=== PATIENT | female | born 1980 | race Caucasian/White ===

== ENCOUNTER 2024-05-28 06:43 | Emergency (ER) | payer OTHER, SELFPAY ==
--- NOTE | ~2024-05-28 | XR_ITS ---
EXAMINATION: XR SHOULDER, RIGHT CLINICAL INFORMATION: Pain with movement COMPARISON: None available. TECHNIQUE: AP external rotation, and scapular Yviews of the right shoulder. FINDINGS: No acute cortical disruption or malalignment. No lytic or blastic lesions. XR/XR shoulder RT min 2V IMPRESSION: No acute fracture or dislocation. Electronically signed by: Karsten Salinas MD 05/28/2024 07:30 AM TASHI
[2024-05-28 06:46] VITALS: BP 112/78; PULSE 68; RESP 16; TEMP 36.6; O2SAT 99; BMI 26.6
--- NOTE | 2024-05-28 07:53 | ED.EXTPRO ---
HPI - Extremity Problem General Chief complaint: Extremity Injury, Upper Stated complaint: Right arm pain ? carpal tunnel Time Seen by Provider: 05/28/24 07:39 Source: patient Mode of arrival: ambulatory History of Present Illness ED Provider: Emily [facility] Narrative: 43-year-old female, no significant past medical history, denies any smoking or drinking of alcohol and is recently entered this country 1 month ago from [place] and states she has had acute worsening of chronic right shoulder discomfort and arm discomfort that is not associated with any fever, chills, abdominal pain, new cough and she states that she is up-to-date on all vaccines to include BCG vaccine for TB in her home country. Related Data Previous Rx's ?Medication ?Instructions ?Recorded cyclobenzaprine 10 mg tablet 10 mg PO BEDTIME PRN muscle spasm 05/28/24 #7 tabs ketorolac 10 mg tablet 10 mg PO Q6H PRN pain #20 tabs 05/28/24 Allergies Allergy/AdvReac Type Severity Reaction Status Date / Time No Known Allergies Allergy Verified 05/28/24 06:54 Review of Systems Review of Systems: Pertinent positives and negatives as stated in HPI Physical Exam Vital Signs: Vital Signs: Last Vital Signs Temp 97.8 F 05/28/24 06:46 Pulse 68 05/28/24 06:46 Resp 16 05/28/24 06:46 BP 112/78 05/28/24 06:46 Pulse Ox 99 05/28/24 06:46 O2 Del Method Room Air 05/28/24 06:46 BMI result Body Mass Index 26.6 VITAL SIGNS: Reviewed. GENERAL: Well developed, well nourished, in no acute distress. HEAD: Normocephalic/atraumatic EYES: PERRLA, EOMI LUNGS: Normal breath sounds. No adventitious sounds or accessory muscle use. SpO2<99> CARDIOVASCULAR: Regular rate and rhythm without noted murmurs ABDOMEN: Soft, non-tender, non-distended with bowel sounds. MUSCULOSKELETAL: No tenderness, deformities, or effusions noted on gross inspection. EXTREMITIES: No cyanosis, clubbing or edema. RUE: No deformity, sensation intact and palpable ulnar/radial pulse SKIN: Inspection of the skin reveals no rashes NEUROLOGIC: Alert and oriented x 4. Strength and sensation to light touch were grossly intact x 4. Medical Decision Making Medical Decision Making MDM Narrative: 43-year-old female with history and clinical presentation chronic right upper extremity pain that originates at the right paraspinal, suspect cervical radiculopathy, history is atraumatic in nature and is not associated with infectious symptoms. Patient does have insurance and is attempting to establish care with a primary provider. She will be given combination analgesics and then discharged with a prescription for additional medications. Differential Diagnosis Differential Diagnoses: The differential diagnosis associated with the presentation includes See above Admission/Observation Patient does not meet inpatient level of care Independent Interpretation I performed an independent interpretation of an: Plain X-Ray Interpretation: On my interpretation there is no evidence of acute fracture or dislocation, and otherwise my interpretation is in agreement with radiology's impression. Radiology Impression Discussion of test interpretation with radiology: I discussed test interpretation with the radiologist Radiologist Impression: Please see above Prescription Management I considered prescription management with: Pain Medication Tylenol, ibuprofen, cyclobenzaprine Discharge Plan Discharge Clinical Impression: Chronic pain of right upper extremity, Cervical radiculopathy Patient Disposition: Home, Self-Care Instructions: Cervical Radiculopathy (ED), Arm Pain (ED) Additional Instructions: Tylenol 1000 mg, orally, every 6 hours as needed for pain control. Do not exceed 4000 mg within 24 hours. Continue with lidocaine patch apply to area of maximal pain. Recommend [id number]-[id number] diclofenac cream, apply to the right side of the neck as directed on the outside packaging. You have been provided with a list of possible primary care providers in the area. Do not hesitate to return to the emergency room should you develop any symptoms such as fever, chills, new cough. Prescriptions: New cyclobenzaprine 10 mg tablet 10 mg PO BEDTIME PRN (Reason: muscle spasm) Qty: 7 0RF ketorolac 10 mg tablet 10 mg PO Q6H PRN (Reason: pain) Qty: 20 0RF Rx Instructions: maximum total duration of 5 days from all oral, intranasal, or parenteral formulations Print Language: Amharic
[2024-05-28] MEDS: Cyclobenzaprine HCl 10 MG TABLET PO (08:11)
[2024-05-28] MEDS: Acetaminophen 325 MG TABLET 975 MG PO (08:12)
[2024-05-28] MEDS: Ketorolac Tromethamine 15 MG/ML VIAL IM (08:12)
[2024-05-28 08:45] VITALS: BP 112/78; PULSE 68; RESP 16; TEMP 36.6; O2SAT 99
== END 2024-05-28 08:45 | disposition home or self-care (01) ==
PROVIDERS: Emergency Provider Student in an Organized Health Care Education/Training Program
DX: M79.601 Pain in right arm (principal); M54.12 Radiculopathy, cervical region; R05.9 Cough, unspecified
CPT/HCPCS: 73030; 96372; 99283; 99284; J1885

== ENCOUNTER → 2024-05-28 07:15 | Outpatient (BNV) | payer OTHER, SELFPAY | PROVIDERS: Emergency Provider Student in an Organized Health Care Education/Training Program; Visit Provider Radiology Diagnostic Radiology | DX: M25.511 Pain in right shoulder (principal) | CPT/HCPCS: 73030 ==

== ENCOUNTER 2025-03-12 13:10 | Outpatient (REF) | payer OTHER, SELFPAY | END 2025-03-12 13:11 | disposition home or self-care (01) | LOC: HO.LNP 13:10 | DX: Z13.89 Encounter for screening for other disorder (principal); R31.9 Hematuria, unspecified; J30.2 Other seasonal allergic rhinitis; Z91.018 Allergy to other foods; R51.9 Headache, unspecified; M25.50 Pain in unspecified joint; N75.0 Cyst of Bartholin's gland; R20.0 Anesthesia of skin; R20.2 Paresthesia of skin; F41.9 Anxiety disorder, unspecified; M25.511 Pain in right shoulder | CPT/HCPCS: 81002; 88112; 96127; 99202 ==

== ENCOUNTER 2025-03-12 13:10 | Outpatient (AMB) | payer OTHER, SELFPAY ==
--- NOTE | 2025-03-12 13:11 | MHC.PC.OV ---
Vital Signs 03/12/25 13:12 Height 4 ft 11.84 in Weight 151 lb BMI 29.6 BP 104/66 Blood Pressure Location Lt brachial Position Sitting Pulse 78 Pulse Oximetry (%) 98 Intake Visit Reasons: establish care Hatchery Manager Required: Yes Hatchery Manager Language: Croatian Accompanied by: Self / Same As Patient Allergies No Known Allergies Allergy (Verified 03/12/25 13:38) Medication List - Last Reconciled 03/12/25 by Becca Lema PA-C No Known Home Meds Tobacco use date assessed: 03/12/25 Dental Screening Dental Screen Date: 03/12/25 Did you have a dental visit in the last 12 months?: No Did you have a dental problem in the last 6 months where you did not have access to dental care?: No Was dental information given to patient?: Yes HPI establish care HPI Details 44 year old female coming to the office for the first time. science interpreter Ignacio [id number] used for the duration of this visit. Presenting with multiple symptoms including seasonal allergies, cervical radiculopathy, carpal tunnel syndrome, anxiety, urinary incontinence, headaches, and parotid gland inflammation. Reports hives and shortness of breath with allergen exposure, occurring three to four times weekly. Loratadine provides some relief. Describes neck pain radiating to arms and fingers, with numbness and tingling, particularly in the mornings. Symptoms began in April-May, leading to an ER visit and diagnosis of cervical physiopathology. Experiences numbness and tingling in the first three digits, worsening during work activities. Present for several months. Acknowledges positive anxiety screening and interest in medication management. History of anti-anxiety medication use in [facility]. Reports new onset of urinary leakage when laughing or coughing, over the past three months. [facility] Surgical History H/O abdominoplasty Hx of appendectomy H/O section Family History Father Diabetes 1.5, managed as type 1 Maternal Grandfather Prostate cancer Paternal Grandfather Prostate cancer Social History Household Members: Spouse and Children Both parents involved: Yes Housing: Apartment Are you a primary early breastfeeding care specialist to a significant other at home: No Do you presently have visiting nurse or other home services: No Alcohol intake: never Patient Tobacco Use Status: Never used Tobacco service: No Current occupational status: employed Cognitive needs: No Hearing needs: No Vision needs: Yes Female Reproductive History Menstrual Total pregnancies: 3 Questionnaire PHQ-9 Over the last 2 weeks, how often have you been bothered by any of the following problems? 1. Little interest or pleasure in doing things: not at all 2. Feeling down, depressed, or hopeless: not at all 3. Trouble falling or staying asleep, or sleeping too much: several days 4. Feeling tired or having little energy: not at all 5. Poor appetite or overeating: not at all 6. Feeling bad about yourself - or that you are a failure or have let yourself or your family down: several days 7. Trouble concentrating on things, such as reading the newspaper or watching television: not at all 8. Moving or speaking so slowly that other people could have noticed. Or the opposite - being so fidgety or restless that you have been moving around a lot more than usual: not at all 9. Thoughts that you would be better off or of hurting yourself in some way: not at all Total score: 2 Depression Screening Interpretation: Negative Depression Screening Done: Yes [id number] - PHQ-9 Billing: Yes Source: Developed by Drs. Isaias Mar, Demetra Lino, Anthony Evangelista and colleagues, with an educational lux from [employer]. Thrive Questionnaire I am a: Patient What is your living situation today?: I have a steady place to live Within the past 12 months, did the food you bought not last and you didn't have the money to get more?: Never true Within the past 12 months, did you worry whether your food would run out before you got money to buy more?: Never true Do you have trouble paying for medicines?: No Do you have trouble getting transportation to medical appointments?: No Do you have trouble paying your heating and electricity bill?: No Do you have trouble taking care of your child, family member or friend?: No Do you have trouble with day-to-day activities such as bathing, preparing meals, shopping, managing finances, etc.?: No Are you currently unemployed and looking for a job?: No Are you interested in more education?: No Please select the resources that you would like help with: None THRIVE Score: 0 AUDIT C Alcohol Use Questionnaire (AUDIT-C) 1. How often do you have a drink containing alcohol?: Never 3. How often do you have six or more drinks on one occasion?: Never Total Score: 0 Score Reviewed/Action Taken: Yes JEN-7 AMB Questionnaire JEN-7 Feeling nervous, anxious, or on edge: 0 = Not at all Not being able to stop or control worryin = More than half the days Worrying too much about different things: 2 = More than half the days Trouble relaxin = More than half the days Being so restless that it is hard to sit still: 1 = Several days Becoming easily annoyed or irritable: 2 = More than half the days Feeling afraid as if something awful might happen: 2 = More than half the days Total JEN-7 score (0-4 normal; 5-9 mild; 10-14 moderate; 15-21 severe): 11 Source: Developed by Drs. Isaias Mar, Demetra Lino, Anthony Evangelista and colleagues, with an educational lux from [employer]. JEN-7 Assessment Billing JEN-7 Assessment Tool: JEN-7 Assessment 52743 Review of Systems Const Denies body aches, Denies fatigue, Denies fever(s), Denies frequent falls, Reports headache(s) and Denies weakness Eyes Reports no additional complaints and Denies change in vision ENT Denies dizziness, Denies facial pain, Reports headache(s) and Denies nasal congestion Card Denies chest pain, Denies syncope, Denies leg edema, Denies lightheadedness and Denies dyspnea Resp Denies dyspnea GI Denies abdominal pain, Denies dyspepsia, Denies nausea and Denies vomiting Reports as per HPI, Denies urinary hesitancy and Denies urinary urgency Musc Reports as per HPI, Denies back pain and Denies myalgias Skin/Breast Reports system reviewed and no additional complaints, except as documented Neuro Denies dizziness, Denies syncope, Denies frequent falls, Reports headache(s) and Denies weakness Psych Reports no additional complaints Endo Denies fatigue Physical exam (Primary Care) Vital Signs: Last Vital Signs Pulse 78 03/12/25 13:12 BP 104/66 03/12/25 13:12 Pulse Ox 98 03/12/25 13:12 BMI result Body Mass Index 29.6 Tobacco/Smoking Status: Tobacco use Status Tobacco use date assessed 03/12/25 03/12/25 13:17 Patient Tobacco Use Status Never used Tobacco 03/12/25 13:19 PHQ-9: PHQ-9 Score PHQ-9: Total score 2 03/13/25 13:13 Depression Screening Interpretation: Negative Const General: cooperative, healthy appearing, comfortable and no acute distress Orientation/consciousness: patient oriented x3 HENMT Head: Yes normocephalic Ears: hearing grossly normal bilaterally, external ears normal, TM's normal bilaterally and EAC's normal General nose exam: Normal external nose present Face and sinus: Yes normal facial exam and Yes sinuses nontender Mouth: Normal oral and palatal mucosa present and tongue normal Throat: Yes posterior oropharynx normal Eyes General: appearance normal, both eyes and all related structures Conjunctivae: conjunctivae normal Pupils: Equal, round and reactive pupils present EOM: EOMs intact bilaterally and No Nystagmus present Neck Neck: Yes normal visual inspection, Yes full ROM and Yes no lymphadenopathy Chest Chest palpation & inspection: normal inspection of the chest Resp Effort & Inspection: normal respiratory effort Auscultation: clear to auscultation bilaterally, no crackles, no rales, no rhonchi, no wheezes and breath sounds present Cardio Rate: regular rate Rhythm: regular rhythm Peripheral pulses: radial pulses present and dorsalis pedis present GI Inspection: Yes normal to inspection and No Abdominal wall edema Palpation (GI): Soft to palpation, not firm and nontender Auscultation: normal bowel sounds Rectal Exam - Female: deferred General: Yes no CVA tenderness Back/Spine/Pelvis Back: no CVA tenderness Skin General skin exam: no rashes or lesions noted Neuro General: patient oriented x3 Cranial nerves: Yes Equal, round and reactive pupils present, Yes Midline tongue present, Yes Ability to bilaterally elevate shoulders present and No Nystagmus present Gait exam (Neuro): Normal gait present Extrem Other: Tenderness to palpation over right shoulder and cervical paraspinal muscles with intact strength, sensation and pulses in bilateral upper extremities General: Yes normal to inspection, Yes full ROM, No no pedal edema and No edema Psych Speech and movement: Normal speech and movement present Affect: normal affect Insight: Good insight present (Psych) Judgement: Good judgement present (Psych) Results AMB Urinalysis Dipstick UR Leukocytes Negative Last Edit by Chance Trivedi MA on 03/12/25 14:38 UR Nitrite Negative Last Edit by Chance Trivedi MA on 03/12/25 14:38 UR Urobilinogen 2 Last Edit by Chance Trivedi MA on 03/12/25 14:38 UR Protein Negative Last Edit by Chance Trivedi MA on 03/12/25 14:38 UR Ph 6.0 Last Edit by Chance Trivedi MA on 03/12/25 14:38 UR Blood Trace Last Edit by Chance Trivedi MA on 03/12/25 14:38 UR Specific Bannister 1.015 Last Edit by Chance Trivedi MA on 03/12/25 14:38 UR Ketone Negative Last Edit by Chance Trivedi MA on 03/12/25 14:38 UR Bilirubin Negative Last Edit by Chance Trivedi MA on 03/12/25 14:38 UR Glucose Negative Last Edit by Chance Trivedi MA on 03/12/25 14:38 Results Reviewed Results Reviewed: Laboratory Last Values Urine pH (Clinic) 6.0 03/12/25 14:36 Specific Bannister (Clinic) 1.015 03/12/25 14:36 Ur Protein (Clinic) Negative 03/12/25 14:36 Ur Ketones (Clinic) Negative 03/12/25 14:36 Urine Blood (Clinic) Trace 03/12/25 14:36 Urine Nitrite Negative 03/12/25 14:36 Urine Bilirubin (Clinic) Negative 03/12/25 14:36 Urobilinogen (Clinic) 2 03/12/25 14:36 Leukocyte Esterase (Clinic) Negative 03/12/25 14:36 Urine Glucose (Clinic) Negative 03/12/25 14:36 Coding Level of Care Code New Pt Level 4 (94715) Diagnoses Seasonal allergies J30.2 Multiple food allergies Z91.018 Frequent headaches R51.9 Joint pain M25.50 Bartholin gland cyst N75.0 Numbness and tingling in both hands R20.0; R20.2 Hematuria R31.9 Anxiety F41.9 Right shoulder pain M25.511 Additional Codes JEN-7 Assessment Billing - JEN-7 Assessment Tool: JEN-7 Assessment 08122 ([id number]) PHQ-9 - 25764 - PHQ-9 Billing: Yes ([id number]) Assessment & Plan Assessment & Plan (1) Seasonal allergies: Code(s): J30.2 - Other seasonal allergic rhinitis Category: Medical Plan: For seasonal allergies recommend continuation of loratadine at this time and may add Flonase if needed (2) Multiple food allergies: Code(s): Z91.018 - Allergy to other foods Category: Medical Plan: For multiple food and possibly environmental allergies referral was placed to allergy and immunology today. (3) Frequent headaches: Code(s): R51.9 - Headache, unspecified Category: Medical Plan: For frequent headaches I do believe it may be related to bruxism given the distribution of the headaches and TMJ pain. Recommend rock crusher operator and keeping a headache diary. (4) Joint pain: Code(s): M25.50 - Pain in unspecified joint Category: Medical Plan: For generalized joint pains in the hands and feet with morning stiffness concern for possible rheumatoid arthritis and blood work was ordered. (5) Bartholin gland cyst: Code(s): N75.0 - Cyst of Bartholin's gland Category: Medical Plan: Referral was placed to gynecology today. (6) Numbness and tingling in both hands: Code(s): R20.0 - Anesthesia of skin; R20.2 - Paresthesia of skin Category: Medical Plan: For numbness and tingling in both hands plan to obtain upper extremity EMG for further evaluation of carpal tunnel. Discussed the use of nighttime splints. (7) Hematuria: Code(s): R31.9 - Hematuria, unspecified Category: Medical Plan: Patient having incidental finding of hematuria plan for urine cytology and consider imaging if persistent. (8) Anxiety: Code(s): F41.9 - Anxiety disorder, unspecified Category: Medical Plan: Plan to start on citalopram daily and referral was placed to counseling today. (9) Right shoulder pain: Code(s): M25.511 - Pain in right shoulder Category: Medical Plan: For right shoulder pain plan for physical therapy for further evaluation and treatment. Patient may use Tylenol, ibuprofen and heating pads as needed Plan During the visit, I discussed with the patient the management of her seasonal allergies, including the continuation of Loratadine and referral to an splash line operator. We also talked about the potential need for physical therapy for her cervical radiculopathy and the possibility of surgical intervention for carpal tunnel syndrome if symptoms persist. I explained the use of citalopram for anxiety management and the importance of counseling. We addressed her urinary incontinence with a urine sample to rule out infections. For her headaches, I recommended maintaining regular sleep patterns and considering vision correction. Lastly, I referred her to a direct care staffer for further evaluation of her parotid gland inflammation. This note was constructed using voice recognition software. While every effort has been made to ensure accuracy and inspector clip on sunglasses, still areas may have been included sometimes these areas may affect the content or meeting of the given symptoms. Total time spent caring for the patient today was 30 minutes. This includes time spent before the visit reviewing the chart, time spent during the visit, and time spent after the visit and documentation. Patient was informed and verbally consented to the use of an ambient scribe for clinic note documentation during this visit. Orders: Orders Rheumatoid Factor 03/12/25 M25.50 - Pain in unspecified joint C Reactive Protein 03/12/25 M25.50 - Pain in unspecified joint CAIT Reflex Titer and Pattern 03/12/25 M25.50 - Pain in unspecified joint Vitamin B12 and Folate 03/12/25 M25.50 - Pain in unspecified joint, Z13.21 - Encounter for screening for nutritional disorder Hemoglobin A1c 03/12/25 R35.0 - Frequency of micturition, Z13.1 - Encounter for screening for diabetes mellitus NE electromyogram (EMG) 03/12/25 R20.0 - Anesthesia of skin, R20.2 - Paresthesia of skin Erythrocyte Sedimentation Rate 03/12/25 M25.50 - Pain in unspecified joint Complete Blood Count Auto Diff 03/12/25 M25.50 - Pain in unspecified joint, Z00.00 - Encounter for general adult medical examination without abnormal findings Comprehensive Met. Panel 03/12/25 M25.50 - Pain in unspecified joint, Z00.00 - Encounter for general adult medical examination without abnormal findings Vitamin D 25-OH Total 03/12/25 M25.50 - Pain in unspecified joint, Z13.21 - Encounter for screening for nutritional disorder TSH reflex Free T4 03/12/25 M25.50 - Pain in unspecified joint, Z13.29 - Encounter for screening for other suspected endocrine disorder Free T4 (Free Thyroxine) 03/12/25 R51.9 - Headache, unspecified, Z00.00 - Encounter for general adult medical examination without abnormal findings Lipid Panel 03/12/25 Z13.220 - Encounter for screening for lipoid disorders AMB Urinalysis Dipstick 03/12/25 Z13.9 - Encounter for screening, unspecified NE nerve conduction velocity 03/12/25 R20.0 - Anesthesia of skin, R20.2 - Paresthesia of skin PT Evaluation and Treatment 03/12/25 M25.511 - Pain in right shoulder, S16.1XXA - Strain of muscle, fascia and tendon at neck level, initial encounter Urine Cytology 03/12/25 R31.9 - Hematuria, unspecified Referrals Counseling Referral F41.9 - Anxiety disorder, unspecified Allergy & Immunology Referral J30.2 - Other seasonal allergic rhinitis, Z91.018 - Allergy to other foods Optometry Referral Z00.00 - Encounter for general adult medical examination without abnormal findings WIRE ROPE SLING MAKER Referral N75.0 - Cyst of Bartholin's gland, Z12.4 - Encounter for screening for malignant neoplasm of cervix Orthopedics Referral R20.0 - Anesthesia of skin, R20.2 - Paresthesia of skin Medications: New loratadine (Allergy Relief (loratadine)) 10 mg PO DAILY 90 tabs 0RF citalopram 10 mg PO DAILY 90 tabs 0RF Discontinued ketorolac maximum total duration of 5 days from all oral, intranasal, or parenteral formulations Discontinued Reason: Patient no longer taking 10 mg PO Q6H PRN 20 tabs 0RF pain cyclobenzaprine Discontinued Reason: Patient no longer taking 10 mg PO BEDTIME PRN 7 tabs 0RF muscle spasm
[2025-03-12 13:12] VITALS: BP 104/66; PULSE 78; O2SAT 98; BMI 29.6
--- OUTSIDE RECORDS SUMMARY | 2025-03-12 13:46 | XMS_ITS | Clinical Summary ---
Author Organization [facility] Address [address] [place] [id number] Phone Care Team Providers Care Energy Professional Name Role Phone Pcp, Unknown Primary Care Provider Unavailabl e Allergies No known active allergies Medications lidocaine (LIDODERM) 5 % Place 1 patch onto the skin daily. Remove & Discard patch within 12 hours or as directed by 30 patch 05/03/2024 Active Active Problems No known active problems Social History Tobacco Use Types Packs/Day Years Used Date Smoking Tobacco: Never Smokeless Tobacco: Never Tobacco Cessation:Counseling Given: Not Answered Education Answer Date Recorded Are you interested in more education? Not on augusta e 05/03/2024 Are you concerned about learning? Not on file 05/03/2024 No 05/03/2024 No 05/03/2024 Digital Access Answer Date Recorded No 05/03/2024 No 05/03/2024 Reliable internet access at home? Not on file 05/03/2024 Device with a working camera? Not on file Comments Unknown Sex and Gender Information Value Date Recorded Sex Assigned at Not on file Legal Sex Female 11:29 AM EDT Gender Identity Not on file Sexual Orientation Not on file Last Filed Vital Signs Vital Sign Reading Time Taken Comments Blood Pressure 100/62 05/03/2024 2:29 PM EDT Pulse 65 05/03/2024 2:29 PM EDT Temperature 36.7 C (98 F) 05/03/2024 2:29 PM EDT Respiratory Rate - - Oxygen Saturation 100% 05/03/2024 2:29 PM EDT Inhaled Oxygen Concentration - - Weight 64.9 kg (143 lb) 05/03/2024 2:29 PM EDT Height 151.9 cm (4' 11.8 ) 05/03/2024 2:29 PM ED T Body Mass Index 28.11 05/03/2024 2:29 PM EDT Plan of Treatment Health Maintenance Due Date Last Done Comments Adult Td,Tdap Booster 1981 DEPRESSION SCREENING 1993 HEPATITIS C SCREENING 1999 HIV ONE-TIME SCREENING (18-6 5 YEARS) 1999 PAP SMEAR 2002 SCREENING FOR DIABETES 2016 MAMMOGRAM 2021 COVID-19 VACCINE (2023-2 5 season) 2024 SMOKING STATUS SCREENING (On ce After 26 Yrs) Completed 05/03/2024 HEPATITIS A VACCINES Aged Out No long er eligible based on patient's age to complete this topic HIB VACCINES Aged Out No longer eligi ble based on patient's age to complete this topic MENINGOCOCCAL VACCINES (ACWY) Aged Out No longer eligible based on patient's age to complete this topic MENINGOCOCCAL VACCINES (B) Aged Out N o longer eligible based on patient's age to complete this topic PNEUMOCOCCAL VACCINES (0-49 years) Aged Out No longer eligible based on patient's age to complete this topic Medical Devices Not on file Insurance HE[employer] S[employer]Y [place] [address] [place] [address] [place] [place] [address] [place] [address] PARTIAL HEALTH SAFETY NET PARTIAL [facility] SAFETY NET PARTIAL Care Teams Energy Professional Relationship Specialty Start Date End Date Pcp, Unknown PCP - General 05/03/24 Additional Source Comments The information contained in this document represents components of the legal health record. It is not the complete legal health record.[facility]
== END 2025-03-12 14:32 | disposition home or self-care (01) ==
DX: Z13.9 Encounter for screening, unspecified (principal)

== ENCOUNTER 2025-04-11 07:45 | Outpatient (REF) | payer OTHER, SELFPAY ==
--- OUTSIDE RECORDS SUMMARY | 2025-04-11 07:48 | XMS_ITS | Clinical Summary ---
Author Organization [facility] Address [address] [place] [id number] Phone Care Team Providers Care Street Sweeper Name Role Phone Pcp, Unknown Primary Care [...] 2002 SCREENING FOR DIABETES 2016 MAMMOGRAM 2021 INFLUENZA VACCINE (#1) 2025 COVID-19 VACCINE (2023-2 5 season) 2025 SMOKING STATUS SCREENING (On ce After 26 [...] topic Medical Devices Not on file Insurance SAFETY NET PARTIAL HEALTH SAFETY NET PARTIAL HEALTH SAFETY NET PARTIAL HEALTH SAFETY NET PARTIAL HEALTH SAFETY NET PARTIAL HEALTH SAFETY NET PARTIAL Care Teams Street Sweeper Relationship Specialty Start Date End Date Pcp, Unknown PCP - General 05/03/24 Additional Source Comments The information contained in this document represents components of the legal health record. It is not the complete legal health record.[facility]
[2025-04-11 08:22] LABS: MANUAL DIFF FLAG NO
[2025-04-11 08:56] LABS: Hematocrit 40.1 % (37.0-47.0); Hemoglobin 13.4 g/dl (12.0-16.0); Imm Gran Abs Auto 0.04 X10*3/uL (0.00-0.03); Imm Gran Pct Auto 0.5 % (0.0-0.4); Lymphocytes Absolute Auto 2.7 X10*3/uL (1.2-4.9); Mean Corpuscular HGB Conc 33.4 g/dl (31.0-35.0); Mean Corpuscular Hemoglobin 28.5 pg (27.0-33.0); Mean Corpuscular Volume 85.1 fL (80.0-98.0); NRBC Abs Auto 0.000 X10*3/uL (0.0-0.012); NRBC Pct Auto 0.0 /100WBC (0.0-0.2); Platelet Count 345 X10*3/uL (160-400); Red Blood Count 4.71 X10*6/uL (4.20-5.50); White Blood Count 7.9 X10*3/uL (4.8-10.8)
[2025-04-11 09:44] LABS: Alanine Aminotransferase 14 U/L (0-31); Albumin Level 4.2 g/dL (3.5-5.0); Alkaline Phosphatase 75 U/L (39-117); Anion Gap 11 (12-20); Aspartate Amino Transferase 19 U/L (5-31); Blood Urea Nitrogen 11 mg/dL (9-16); Calcium 8.7 mg/dL (8.4-10.2); Carbon Dioxide 23 mmol/L (22-29); Chloride 108 mmol/L (96-108); Cholesterol 193 mg/dL (<200); Estimated Glomerular Filt Rate > 60; HDL Cholesterol 70 mg/dL (>40); Potassium 4.1 mmol/L (3.3-5.1); Sodium 138 mmol/L (135-145); Total Protein 7.3 g/dL (6.5-8.0); Triglycerides 94 mg/dL (<150)
[2025-04-11 09:53] LABS: Folate 13.4 ng/mL (> or = 4.0); Free T4 (Free Thyroxine) 0.93 ng/dL (0.71-1.85); Vitamin B12 715 pg/mL (200-900)
[2025-04-13 13:54] LABS: Anti Nuclear Antibody Screen NEGATIVE (NEGATIVE)
== END 2025-04-11 07:46 | disposition home or self-care (01) ==
LOC: HO.LAB 07:45
DX: Z00.00 Encounter for general adult medical examination without abnormal findings (principal); Z13.29 Encounter for screening for other suspected endocrine disorder; Z13.220 Encounter for screening for lipoid disorders; Z13.1 Encounter for screening for diabetes mellitus; Z13.21 Encounter for screening for nutritional disorder; R51.9 Headache, unspecified; R35.0 Frequency of micturition; M25.50 Pain in unspecified joint; R31.9 Hematuria, unspecified
CPT/HCPCS: 36415; 80053; 80061; 82306; 82607; 82746; 83036; 84439; 84443; 85025; 85652; 86038; 86140; 86431; 88112

== ENCOUNTER 2025-05-18 13:53 | Outpatient (AMB) | payer OTHER, SELFPAY ==
[2025-05-18 14:00] VITALS: BP 99/72; PULSE 76; TEMP 36.3; O2SAT 98; BMI 30.8
--- NOTE | 2025-05-18 14:00 | A.OFFPC_ITS ---
Vital Signs 05/18/25 14:00 Height 4 ft 11 in Weight 152 lb 6 oz BMI 30.8 BP 99/72 Blood Pressure Location Lt brachial Position Sitting Pulse 76 Pulse Source Pulse Oximeter Temp 97.3 F Temp Source Temporal Artery Scan Pulse Oximetry (%) 98 Oxygen Delivery Method Room Air Intake Visit Reasons: 2m follow up depression Petrophysicist Required: Yes Petrophysicist Language: Slovak Accompanied by: Self / Same As Patient Allergies No Known Allergies Allergy (Verified 05/18/25 14:05) Medication List - Last Reconciled 05/18/25 by Becca Lema PA-C citalopram 10 mg PO DAILY loratadine (Allergy Relief (loratadine)) 10 mg PO DAILY Tobacco use date assessed: 05/18/25 Dental Screening Dental Screen Date: 05/18/25 Did you have a dental visit in the last 12 months?: No Did you have a dental problem in the last 6 months where you did not have access to dental care?: No Was dental information given to patient?: Yes HPI 2m follow up depression HPI Details 44-year-old female with past medical his tory headaches and anxiety last seen 02/2025 coming in for follow up. historical interpreter [id number] [employer] was used for the duration of this visit. Patient tells us today she feels the citalopram has been helpful for her but she does still have breakthrough anxiety and is interested in increasing the dose. She currently tense therapy once a week. She is awaiting a nerve conduction study for the numbness in her hands. She also has pending appointments with gynecology and urology. She has seen the aviation operations specialist and discovered she is allergic to fish. She started on loratadine for allergy management and saw an improvement in her headaches. The patient expresses significant concern about weight gain despite her efforts with diet and exercise. She reports being on a diet and exercising daily. [facility] Surgical History H/O abdominoplasty Hx of appendectomy H/O section Family History Father Diabetes 1.5, managed as type 1 Maternal Grandfather Prostate cancer Paternal Grandfather Prostate cancer Social History Household Members: Spouse and Children Both parents involved: Yes Housing: Apartment Are you a primary customer care consultant to a significant other at home: No Do you presently have visiting nurse or other home services: No Alcohol intake: never Patient Tobacco Use Status: Never used Tobacco e-Cigarette/Vaping Use: Never Used Second Hand Smoke Exposure: No service: No Current occupational status: employed Cognitive needs: No Hearing needs: No Vision needs: Yes Female Reproductive History Menstrual Total pregnancies: 3 Questionnaire PHQ-9 Over the last 2 weeks, how often have you been bothered by any of the following problems? 1. Little interest or pleasure in doing things: not at all 2. Feeling down, depressed, or hopeless: more than half the days 3. Trouble falling or staying asleep, or sleeping too much: more than half the days 4. Feeling tired or having little energy: more than half the days 5. Poor appetite or overeating: more than half the days 6. Feeling bad about yourself - or that you are a failure or have let yourself or your family down: not at all 7. Trouble concentrating on things, such as reading the newspaper or watching television: not at all 8. Moving or speaking so slowly that other people could have noticed. Or the opposite - being so fidgety or restless that you have been moving around a lot more than usual: not at all 9. Thoughts that you would be better off or of hurting yourself in some way: not at all Total score: 8 Source: Developed by Drs. Isaias Mar, Demetra Lino, Anthony Evangelista and colleagues, with an educational lux from [employer]. Thrive Questionnaire Date Thrive assessed: 05/18/25 I am a: Patient What is your living situation today?: I have a steady place to live Within the past 12 months, did the food you bought not last and you didn't have the money to get more?: I choose not to answer this question Within the past 12 months, did you worry whether your food would run out before you got money to buy more?: Sometimes True Do you have trouble paying for medicines?: I choose not to answer this question Do you have trouble getting transportation to medical appointments?: I choose not to answer this question Do you have trouble paying your heating and electricity bill?: Yes Do you have trouble taking care of your child, family member or friend?: I choose not to answer this question Do you have trouble with day-to-day activities such as bathing, preparing meals, shopping, managing finances, etc.?: No Are you currently unemployed and looking for a job?: No Are you interested in more education?: I choose not to answer this question Please select the resources that you would like help with: Paying for medicine and Utilities Currently or been in a relationship where the following occur: No concerns repo rted THRIVE Score: 2 AUDIT C Alcohol Use Questionnaire (AUDIT-C) 1. How often do you have a drink containing alcohol?: Never 3. How often do you have six or more drinks on one occasion?: Never Total Score: 0 Score Reviewed/Action Taken: Yes JEN-7 AMB Questionnaire JEN-7 Date JEN - 7 assessed: 05/18/25 Feeling nervous, anxious, or on edge: 1 = Several days Not being able to stop or control worryin = Several days Worrying too much about different things: 1 = Several days Trouble relaxin = Several days Being so restless that it is hard to sit still: 1 = Several days Becoming easily annoyed or irritable: 1 = Several days Feeling afraid as if something awful might happen: 1 = Several days Total JEN-7 score (0-4 normal; 5-9 mild; 10-14 moderate; 15-21 severe): 7 Source: Developed by Drs. Isaias Mar, Demetra Lino, Anthony Evangelista and colleagues, with an educational lux from [employer]. Review of Systems Const Denies body aches, Denies chills, Denies fever(s), Denies headache(s) and Denies poor appetite Eyes Reports no additional complaints ENT Denies dizziness and Denies headache(s) Card Denies chest pain, Denies edema, Denies lightheadedness and Denies dyspnea Resp Denies cough and Denies dyspnea GI Denies abdominal pain, Denies nausea and Denies vomiting Reports no additional complaints Musc Reports no additional complaints and Denies abnormal gait Skin/Breast Reports system reviewed and no additional complaints, except as documented Neuro Denies abnormal gait, Denies dizziness and Denies headache(s) Psych Reports no additional complaints Physical exam (Primary Care) Vital Signs: Last Vital Signs Temp 97.3 F 05/18/25 14:00 Pulse 76 05/18/25 14:00 BP 99/72 05/18/25 14:00 Pulse Ox 98 05/18/25 14:00 Oxygen Delivery Method Room Air 05/18/25 14:00 BMI result Body Mass Index 30.8 Tobacco/Smoking Status: Tobacco use Status Tobacco use date assessed 05/18/25 05/18/25 14:02 Patient Tobacco Use Status Never used Tobacco 05/18/25 14:02 e-Cigarette/Vaping Use Never Used 05/18/25 14:02 PHQ-9: PHQ-9 Score PHQ-9: Total score 8 05/18/25 15:09 Thrive Assessment: Date of Thrive Assessment Date Thrive assessed 05/18/25 05/18/25 14:02 Currently or been in a relationship where the following occur: No concerns reported Const General: cooperative, healthy appearing, comfortable and no acute distress Orientation/consciousness: patient oriented x3 HENMT Head: Yes normocephalic Ears: hearing grossly normal bilaterally General nose exam: Normal external nose present Eyes General: appearance normal, both eyes and all related structures Conjunctivae: conjunctivae normal Neck Neck: Yes full ROM and Yes no lymphadenopathy Resp Effort & Inspection: normal respiratory effort Auscultation: clear to auscultation bilaterally, no crackles, no rales, no rhonchi and no wheezes Cardio Rate: regular rate Rhythm: regular rhythm Skin General skin exam: no rashes or lesions noted Neuro General: patient oriented x3 Gait exam (Neuro): Normal gait present Extrem General: Yes normal to inspection, Yes full ROM and No edema Psych Affect: normal affect Attitude: cooperative Insight: Good insight present (Psych) Judgement: Good judgement present (Psych) Coding Level of Care Code Est Pt Level 3 (46900) Diagnoses Frequent headaches R51.9 Numbness and tingling in both hands R20.0; R20.2 Anxiety F41.9 Obesity (BMI 30.0-34.9) E66.9 Assessment & Plan Assessment & Plan (1) Frequent headaches: Code(s): R51.9 - Headache, unspecified Category: Medical Plan: Headaches have improved since her last visit. She has been using the allergy medication which has been helpful for her. Follow up as needed for this concern. (2) Numbness and tingling in both hands: Code(s): R20.0 - Anesthesia of skin; R20.2 - Paresthesia of skin Category: Medical Plan: For numbness and tingling in both hands plan to obtain upper extremity EMG for further evaluation of carpal tunnel. Discussed the use of nighttime splints. Awaiting EMG which is scheduled for later this month. (3) Anxiety: Code(s): F41.9 - Anxiety disorder, unspecified Category: Medical Plan: Patient was started on citalopram at her last visit and she feels this has been helpful but she would like to increase at this time. Prescription for 20mg tablet was sent to pharmacy today. She will continue to work with her therapist weekly as well. (4) Obesity (BMI 30.0-34.9): Code(s): E66.9 - Obesity, unspecified Category: Medical Plan: Healthy diet and regular exercise is encouraged. Patient was counseled today on the risks and benefits of GLP-1 injections as well as the dosing schedule. She has no family history or personal history of thyroid disease and no gallbladder disease. Discussed with the patient the potential GI side effects of this medication. Plan to have repeat blood work after one month of therapy to monitor kidney and liver function before increasing the dose of this medication. Follow up in 3 months for a weight check. Patient has been working on diet and exercise and has not seen an improvement in her weight. Plan This note was constructed using voice recognition software. While every effort has been made to ensure accuracy and coiled tubing operator, still areas may have been included sometimes these areas may affect the content or meeting of the given symptoms. Total time spent caring for the patient today was 30 minutes. This includes time spent before the visit reviewing the chart, time spent during the visit, and time spent after the visit and documentation. Patient was informed and verbally consented to the use of an ambient scribe for clinic note documentation during this visit. Medications: New tirzepatide (weight loss) (Zepbound) for 4 weeks 2.5 mg (0.5 mL) subcut QWEEK 2 mL 0RF E66.9 - Obesity, unspecified citalopram 20 mg PO DAILY 90 tabs 0RF Refilled loratadine (Allergy Relief (loratadine)) 10 mg PO DAILY 90 tabs 0RF Discontinued citalopram Discontinued Reason: Patient no longer taking 10 mg PO DAILY 90 tabs 0RF
== END 2025-05-18 14:42 | disposition home or self-care (01) ==
LOC: HO.HMCH 13:54
DX: R51.9 Headache, unspecified (principal); R20.0 Anesthesia of skin; E66.9 Obesity, unspecified; Z68.30 Body mass index [BMI] 30.0-30.9, adult; R20.2 Paresthesia of skin; F41.9 Anxiety disorder, unspecified

== ENCOUNTER → 2025-05-18 13:53 | Outpatient (BNVA) | payer OTHER, SELFPAY | DX: R20.0 Anesthesia of skin (principal); F41.9 Anxiety disorder, unspecified; R51.9 Headache, unspecified; R20.2 Paresthesia of skin; E66.9 Obesity, unspecified; Z68.30 Body mass index [BMI] 30.0-30.9, adult | CPT/HCPCS: 99212 ==

== ENCOUNTER 2025-05-20 15:16 | Outpatient (AMB) | payer OTHER, SELFPAY ==
--- NOTE | 2025-05-20 15:27 | A.OFFVIS_ITS ---
Intake Visit Reasons: urinary incontinence/ urinary frequency Intake Note: Patient is present for URINARY INCONTINENCE/URINARY FREQUENCY Urology Medication:NONE Antibiotic Allergy:NONE Blood Thinner:NONE Quality Improvement Coordinator Required: Yes Quality Improvement Coordinator Services: Quality Improvement Coordinator Present Quality Improvement Coordinator Name: EDMUNDO WATTS Allergies No Known Allergies Allergy (Verified 05/20/25 20:32) Medication List - Last Reconciled 05/20/25 by BONITA Wood- citalopram 20 mg PO DAILY loratadine (Allergy Relief (loratadine)) 10 mg PO DAILY tirzepatide (weight loss) (Zepbound) 2.5 mg (0.5 mL) subcut QWEEK HPI Comments Details: Megan is a pleasant 44-year-old Ugandan-speaking female patient of Dr. Lema. She has a past medical history of headaches and anxiety. She presents to the office today as a new patient for ongoing urinary incontinence she has been experiencing. In discussion with the patient today she reports over the last year she has been experiencing episodes of mixed urinary incontinence requiring her to utilize 4-5 Dasia pads per day. She does report a previous history of nephrolithiasis in the past however never requiring surgical intervention. When asked she does report a previous history of 3 d eliveries. She reports deliveries were uneventful and babies were average size. She denies hematuria, dysuria, foul smelling urine, changes to urinary stream, flank pain, fever, and or chills. In office urinalysis results with the patient today. PVR 9 mL. We did discussed further treatment options of urinary incontinence as well as risks and benefits of these treatment options. All questions were answered. She otherwise offers no other issues or concerns at this time. History of Present Illness The patient is a 44-year-old female presenting with urinary incontinence. She reports experiencing urinary dribbling and incontinence for approximately one year. The patient has had three deliveries, which may contribute to her current symptoms. 1. Urinary Incontinence The patient was informed about management options for urinary incontinence to include pelvic floor therapy, pharmacotherapy, and urodynamic testing. [facility] Surgical History H/O abdominoplasty Hx of appendectomy H/O section Family History Father Diabetes 1.5, managed as type 1 Maternal Grandfather Prostate cancer Paternal Grandfather Prostate cancer Social History Household Members: Spouse and Children Both parents involved: Yes Housing: Apartment Are you a primary healthcare administration intern to a significant other at home: No Do you presently have visiting nurse or other home services: No Alcohol intake: never Patient Tobacco Use Status: Never used Tobacco e-Cigarette/Vaping Use: Never Used Second Hand Smoke Exposure: No service: No Current occupational status: employed Cognitive needs: No Hearing needs: No Vision needs: Yes Review of Systems Const All systems reviewed & are unremarkable except as noted in HPI and below Physical Exam Const General: cooperative, healthy appearing, comfortable, no acute distress, well developed, alert and awake Orientation/consciousness: patient oriented x3 Limitations: no limitations HEENT Head: Yes normal to inspection, Yes normocephalic and Yes atraumatic Ears: hearing grossly normal bilaterally Eyes General: appearance normal, both eyes and all related structures Neck Neck: Yes normal visual inspection and Yes trachea midline Chest Chest palpation & inspection: normal inspection of the chest Resp Effort & Inspection: normal respiratory effort and able to speak in complete sentences Cardio Rate: regular rate GI Inspection: Yes normal to inspection General: Yes no CVA tenderness Back/Spine/Pelvis Back: no CVA tenderness Skin General skin exam: no rashes or lesions noted Neuro General: patient oriented x3 Extrem General: Yes normal to inspection Psych Appearance: grossly normal and well kempt Mental Status: mental status grossly normal Speech and movement: Normal speech and movement present and Clear speech present Affect: normal affect Attitude: cooperative Thought process: Normal thought process present Thought content: Normal thought content present Insight: Fair insight present (Psych) Judgement: Fair judgement present (Psych) Office Procedures Post Void Residual Post Residual Void Post Void Residual (PVR): 9 [id number] Void Residual by ultrasound Results AMB Urinalysis, Automated UA Leukoctes 0 Tip/uL Last Edit by LAKE Avila on 05/20/25 16:09 UA Nitrite Negative Last Edit by LA[place] Avila on 05/20/25 16:09 UA Urobilinogen 0.2 mg/dL Last Edit by LAKE Avila on 05/20/25 16:0 9 UA Protein 0 mg/dL Last Edit by Kimberly Cardoza [facility] on 05/20/25 16:09 UA pH 6.0 Last Edit by Kimberly Cadroza [facility] on 05/20/25 16:09 UA Blood 0 Claus/uL Last Edit by Kimberly Cardoza [facility] on 05/20/25 16:09 UA Specific Walling 1.025 Last Edit by Kimberly Cardoza [facility] on 05/20/25 16: 09 UA Ketone Negative Last Edit by Kimberly Cardoza [facility] on 05/20/25 16:09 UA Bilirubin 0 mg/dL Last Edit by Kimberly Cardoza [facility] on 05/20/25 16:09 UA Glucose 0 mg/dL Last Edit by Kimberly Cardoza [facility] on 05/20/25 16:09 Results Reviewed Results Reviewed: Laboratory Last Values Urine pH (Auto) 6.0 05/20/25 16:09 Specific Walling (Auto) 1.025 05/20/25 16:09 Urine Protein (Auto) 0 mg/dL 05/20/25 16:09 Glucose (UA)(Auto) 0 mg/dL 05/20/25 16:09 Urine Ketones (Auto) Negative 05/20/25 16:09 Urine Blood (Auto) 0 Claus/uL 05/20/25 16:09 Urine Nitrite (Auto) Negative 05/20/25 16:09 Urine Bilirubin (Auto) 0 mg/dL 05/20/25 16:09 Urine Urobilinogen (Auto) 0.2 mg/dL 05/20/25 16:09 Leukocyte Esterase (Auto) 0 Tip/uL 05/20/25 16:09 Assessment & Plan Assessment & Plan (1) Mixed incontinence urge and stress: Code(s): N39.46 - Mixed incontinence Category: Medical (2) Urinary dribbling: Code(s): N39.43 - Post-void dribbling Category: Medical (3) Nephrolithiasis: Code(s): N20.0 - Calculus of kidney Category: Medical Plan In office urinalysis results reviewed with the patient today; as noted above. PVR 9 mL. We did discussed at length potential causes and further treatment options of urinary incontinence; we discussed risks and benefits of these treatment options. All questions were answered. Start oxybutynin as discussed and prescribed. Will obtain retroperitoneal ultrasound for further assessment evaluation. We did discussed bladder triggers and irritants. Follow-up in 1-3 months with PVR; or sooner with any issues, concerns, and or questions. Orders: Orders AMB Urinalysis Automated Today Z13.9 - Encounter for screening, unspecified US retroperitoneal comp Today N39.46 - Mixed incontinence Medications: New oxybutynin chloride ER 10 mg PO DAILY 30 tabs 3RF 30 days N32.81 - Overactive bladder Patient Instructions: The patient had an opportunity to ask questions regarding the treatment plan. All questions were answered. Physical exam, labs, and imaging were discussed and reviewed in detail. As well as risks, benefits, and discussion of treatment choices. No major barriers to understanding were identified. The patient expressed understanding and agreement with the above treatment plan. The patient was made aware they should contact our office by phone for worsening of their current condition, the appearance of new symptoms, or with any questions or concerns. Compliance is encouraged with any medications and follow up testing that is ordered. It is a privilege to be allowed the opportunity to participate in? your urological care.? Again, if you have any questions or concerns If you have any questions or concerns please do not hesitate to contact me. The office is [phone]. This note is constructed using voice recognition software. While every effort has been made to ensure accuracy outside property agent errors may have been included. Yours sincerely, MICH Wood Coding Level of Care Code New Pt Level 4 (42071) Diagnoses Mixed incontinence urge and stress N39.46 Urinary dribbling N39.43 Nephrolithiasis N20.0 CPT Codes Post Residual Void - PVR CPT Code: 19774-Vmso Void Residual by ultrasound ([id number])
--- OUTSIDE RECORDS SUMMARY | 2025-05-20 18:14 | XMS_ITS | Clinical Summary ---
Author Organization [facility] Address [address] [place] [id number] Phone Care Team Providers Care Dry Drug Worker Name Role Phone Pcp, Unknown Primary Care [...] 2021 INFLUENZA VACCINE (#1) 2025 COVID-19 VACCINE (2024-2 6 season) 2025 SMOKING STATUS SCREENING (On ce [...] PARTIAL HEALTH SAFETY NET PARTIAL Care Teams Dry Drug Worker Relationship Specialty Start Date End Date Pcp, Unknown PCP - General 05/03/24 Additional Source Comments The information contained in this document represents components of the legal health record. It is not the complete legal health record.[facility]
== END 2025-05-20 16:20 | disposition home or self-care (01) ==
LOC: HO.HUSH 15:17
PROVIDERS: Visit Provider Nurse Practitioner Family
DX: N39.46 Mixed incontinence (principal); N39.43 Post-void dribbling; N20.0 Calculus of kidney; Z13.9 Encounter for screening, unspecified
CPT/HCPCS: 99204

== ENCOUNTER → 2025-05-20 15:16 | Outpatient (BNVA) | payer OTHER, SELFPAY | PROVIDERS: Visit Provider Nurse Practitioner Family | DX: N39.46 Mixed incontinence (principal); N39.43 Post-void dribbling; N20.0 Calculus of kidney | CPT/HCPCS: 51798; 81003; 99202 ==

== ENCOUNTER 2025-05-27 13:43 | Outpatient (REF) | payer OTHER, SELFPAY ==
--- NOTE | 2025-05-27 13:45 | EMG_ITS ---
Chief complaint: Bilateral hand numbness Reason for referral: Evaluate for Carpal Tunnel Syndrome Referred by: Becca CUMMINGS Procedure done: Bilateral upper extremities NCS/EMG Precautions and/or limitations: None The limb temperature was monitored continuously and remained between 32-36 degrees C during the performance of the NCS. Nerve Conduction Studies Anti Sensory Summary Table ?Stim Site NR Onset (ms) Norm Onset (ms) Peak (ms) Norm Peak (ms) O-P Amp (?V) Norm O-P Amp Site1 Site2 Delta-0 (ms) Dist (cm) Parveen (m/s) Norm Parveen (m/s) Left Median Anti Sensory (2nd Digit) Wrist ? 2.5 3.0 <3.6 1.8 >10 Wrist 2nd Digit 2.5 14.0 56 Right Median Anti Sensory (2nd Digit) Wrist ? 4.2 5.1 <3.6 27.9 >10 Wrist 2nd Digit 4.2 14.0 33 Right Radial Anti Sensory (Thumb) Forearm ? 2.0 2.5 <3.1 22.1 Forearm Thumb 2.0 10.0 50 Left Ulnar Anti Sensory (5th Digit) Wrist ? 2.3 2.9 <3.7 83.3 >15.0 Wrist 5th Digit 2.3 14.0 61 Right Ulnar Anti Sensory (5th Digit) Wrist ? 1.9 3.0 <3.7 172.9 >15.0 Wrist 5th Digit 1.9 14.0 74 Motor Summary Table ?Stim Site NR Onset (ms) Norm Onset (ms) O-P Amp (mV) Norm O-P Amp iAmp (mV) Amp (1st) (%) Site1 Site2 Delta-0 (ms) Dist (cm) Parveen (m/s) Norm Parveen (m/s) Left Median Motor (Abd Poll Brev) Wrist ? 5.1 <3.9 10.2 >4.5 12.6 100.0 Elbow Wrist 3.3 17.0 52 >45 Elbow ? 8.4 9.7 12.0 95.1 Right Median Motor (Abd Poll Brev) Wrist ? 5.9 <3.9 9.3 >4.5 11.6 100.0 Elbow Wrist 3.4 17.0 50 >45 Elbow ? 9.3 9.4 11.5 101.1 Left Ulnar Motor (Abd Dig Minimi) Wrist ? 2.7 <3.0 8.1 >5 10.4 100.0 B Elbow Wrist 2.5 15.5 62 >45 B Elbow ? 5.2 7.9 10.1 97.5 A Elbow B Elbow 1.3 10.0 77 >45 A Elbow ? 6.5 7.8 10.1 96.3 Right Ulnar Motor (Abd Dig Minimi) Wrist ? 2.7 <3.0 9.2 >5 11.1 100.0 B Elbow Wrist 2.6 16.5 63 >45 B Elbow ? 5.3 9.6 11.7 104.3 A Elbow B Elbow 1.0 10.0 100 >45 A Elbow ? 6.3 9.2 11.1 100.0 EMG ?Side Muscle Nerve Root Ins Act Fibs Psw Amp Dur Poly Recrt Int Pat Comment Right 1stDorInt Ulnar C8-T1 Nml Nml Nml Nml Nml 0 Nml Complete Right FlexCarRad Median C6-7 Nml Nml Nml Nml Nml 0 Nml Complete Right Biceps Musculocut C5-6 Nml Nml Nml Nml Nml 0 Nml Complete Right Triceps Radial C6-7-8 Nml Nml Nml Nml Nml 0 Nml Complete Right Deltoid Axillary C5-6 Nml Nml Nml Nml Nml 0 Nml Complete Left 1stDorInt Ulnar C8-T1 Nml Nml Nml Nml Nml 0 Nml Complete Left FlexCarRad Median C6-7 Nml Nml Nml Nml Nml 0 Nml Complete Left Biceps Musculocut C5-6 Nml Nml Nml Nml Nml 0 Nml Complete Left Triceps Radial C6-7-8 Nml Nml Nml Nml Nml 0 Nml Complete Left Deltoid Axillary C5-6 Nml Nml Nml Nml Nml 0 Nml Complete FINDINGS: Bilateral median motor nerves showed prolonged distal latency, normal amplitude and normal conduction velocity. Right median sensory nerve showed prolonged peak latency. Left median sensory nerve showed small amplitude and normal peak latency. All other nerves tested were within normal. Concentric needle EMG was performed in selected muscles of the bilateral upper extremities. Study did not reveal signs of electric abnormalities as shown in the table above. IMPRESSION: 1. This is an abnormal study. 2. There is electrodiagnostic evidence for bilateral moderate-severe median neuropathy at the wrist, consistent with carpal tunnel syndrome. 3. There is no electrodiagnostic evidence for ulnar neuropathy, brachial plexopathy, or cervical radiculopathy. Thank you for your kind referral. Danielle Cooper MD, PRUDENCIO Board Certified, [place] [employer] and [employer] (ABPMR) Board Certified, [place] Board [employer] Electrodiagnostic [employer] (ABEM) CODIN [phone] x 2 extremities MTDD
--- OUTSIDE RECORDS SUMMARY | 2025-05-27 16:44 | XMS_ITS | Clinical Summary ---
Author Organization [facility] Address [address] [place] [phone] Phone Care Team Providers Care Screen Print Operator Name Role Phone Pcp, Unknown Primary Care [...] [employer] HE[employer] SAF[employer] [facility] PARTIAL Care Teams Screen Print Operator Relationship Specialty Start Date End Date Pcp, Unknown PCP - General 05/03/24 Additional Source Comments The information contained in this document represents components of the legal health record. It is not the complete legal health record.[facility]
== END 2025-05-27 13:44 | disposition home or self-care (01) ==
LOC: HO.NEURO 13:43
DX: R20.0 Anesthesia of skin (principal); R20.2 Paresthesia of skin
CPT/HCPCS: 95886; 95911

== ENCOUNTER → 2025-05-27 13:45 | Outpatient (BNV) | payer OTHER, SELFPAY | PROVIDERS: Visit Provider Physical Medicine & Rehabilitation | DX: G56.03 Carpal tunnel syndrome, bilateral upper limbs (principal) | CPT/HCPCS: 95886; 95911 ==

== ENCOUNTER 2025-06-29 14:51 | Outpatient (AMB) | payer OTHER, SELFPAY ==
--- NOTE | 2025-06-29 15:03 | MHC.OFFVIS ---
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 At today's visit she states that for the past two years she has had numbness and tingling that radiates up the arm into the neck. She reports that the right hand radiates into the forearm and elbow with a burning sensation. 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 IMPRESSION 06/24/25: 1. This is an abnormal study. 2. There is electrodiagnostic evidence for bilateral moderate-severe median neuropathy at the wrist, consistent with carpal tunnel syndrome. 3. There is no electrodiagnostic evidence for ulnar neuropathy, brachial plexopathy, or cervical radiculopathy. Tower Dragline Operator Required: Yes Tower Dragline Operator Services: Tower Dragline Operator Present Tower Dragline Operator Name: Yonathan - [phone] Allergies fish derived (fish) Allergy (Intermediate, Verified 06/29/25 15:12) Itching HPI HPI OPTIMIZATION ANALYST- B/L hands- EMG done 05/27/25: Details: Megan is a 44 year old right hand dominant female who presents today as a New Patient for evaluation of Bilateral Hand Numbness & Tingling, R>L. At today's visit she states that for the past two years she has had numbness and tingling that radiates up the arm into the neck. She reports that the right hand radiates into the forearm and elbow with a burning sensation. 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 IMPRESSION 06/24/25: 1. This is an abnormal study. 2. There is electrodiagnostic evidence for bilateral moderate-severe median neuropathy at the wrist, consistent with carpal tunnel syndrome. 3. There is no electrodiagnostic evidence for ulnar neuropathy, brachial plexopathy, or cervical radiculopathy. [facility] Surgical History H/O abdominoplasty Hx of appendectomy H/O section Family History Father Diabetes 1.5, managed as type 1 Maternal Grandfather Prostate cancer Paternal Grandfather Prostate cancer Social History (Updated 06/29/25 @ 15:10 by Carla Vieyra) Household Members: Spouse and Children Both parents involved: Yes Housing: Apartment Are you a primary critical care nurse to a significant other at home: No Do you presently have visiting nurse or other home services: No Alcohol intake: never Patient Tobacco Use Status: Never used Tobacco e-Cigarette/Vaping Use: Never Used Second Hand Smoke Exposure: No service: No Current occupational status: employed 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 Normal sensation to all other digits in the right hand today. Normal sensation in the tips of all digits of the left hand today. No thenar or intrinsic wasting. Good APB muscle firing and good finger cross. Vascular: Capillary refill brisk. ROM: Patient can make a fist and extend all their digits. Skin: No lacerations or abrasions noted. General: No ecchymosis. No erythema or evidence of infection. Assessment & Plan Assessment & Plan (1) Bilateral carpal tunnel syndrome: Code(s): G56.03 - Carpal tunnel syndrome, bilateral upper limbs Category: Medical Plan 1. Bilateral carpal tunnel syndrome Symptoms intermittent, daily, worse at night Worse on the right Patient is educated about this condition Patient is educated about the typical treatment and recovery course At this time, patient is informed that the preferred treatment for carpal tunnel syndrome is surgical intervention, however, the patient states she would need to get surgery cleared of her employer prior to moving forward with surgery Patient will call our office after discussing adequate time table with her employer Patient is also educated of the risks of prolonging treatment for carpal tunnel syndrome Follow-up when she is ready to discuss surgery, sooner with any acute concerns Coding Level of Care Code New Pt Level 3 (07221) Diagnoses Bilateral carpal tunnel syndrome G56.03
[2025-06-29 15:11] VITALS: BMI 30.3
--- OUTSIDE RECORDS SUMMARY | 2025-06-29 21:19 | XMS_ITS | Clinical Summary ---
Author Organization [facility] Address [address] [place] [phone] Phone Care Team Providers Care Lab Pack Chemist Name Role Phone Pcp, Unknown Primary Care [...] [employer] HEALTH SAF[employer]Y NET PARTIAL Care Teams Lab Pack Chemist Relationship Specialty Start Date End Date Pcp, Unknown PCP - General 05/03/24 Additional Source Comments The information contained in this document represents components of the legal health record. It is not the complete legal health record.[facility]
== END 2025-06-29 15:34 | disposition home or self-care (01) ==
LOC: HO.HOS 14:51
DX: G56.03 Carpal tunnel syndrome, bilateral upper limbs (principal)
CPT/HCPCS: 99203

== ENCOUNTER → 2025-06-29 14:51 | Outpatient (BNVA) | payer OTHER, SELFPAY | DX: G56.03 Carpal tunnel syndrome, bilateral upper limbs (principal) | CPT/HCPCS: 99202 ==